=== PATIENT | male | born 1960 | race African-American/Black ===

== ENCOUNTER 2018-12-26 08:54 | Emergency (ER) | payer OTHER ==
[2018-12-26 09:05] VITALS: BP 137/77; PULSE 66; TEMP 98.1; BMI 27.0
[2018-12-26] MEDS ORDERED: KETOROLAC TROMETHAMINE 60 MG/2 ML VIAL IM ONE (09:53)
[2018-12-26] MEDS ORDERED: LIDOCAINE 5% TOPICAL PATCH TP ONE (09:53)
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
[2018-12-26] MEDS ORDERED: LIDOCAINE 5% TOPICAL PATCH ONE (09:55)
[2018-12-26] MEDS ORDERED: KETOROLAC TROMETHAMINE 60 MG/2 ML VIAL ONE (09:55)
[2018-12-26] MEDS ORDERED: LIDOCAINE PATCH REMOVAL MC SCH (22:00)
== END 2018-12-26 11:46 | disposition home or self-care (01) ==
LOC: JERFT 08:54
PROC: 3E0233Z Introduction of Anti-inflammatory into Muscle, Percutaneous Approach (ICD-10-PCS; principal; 2018-12-26)
DX: M54.6 Pain in thoracic spine (principal); M62.830 Muscle spasm of back; V59.49XA Driver of pick-up truck or van injured in collision with other motor vehicles in traffic accident, initial encounter; Y92.414 Local residential or business street as the place of occurrence of the external cause; Y93.89 Activity, other specified; Y99.0 Civilian activity done for income or pay
CPT/HCPCS: 72070-TC-FY; 72100-TC-FY; 99281-25

== ENCOUNTER 2020-04-17 13:38 | Inpatient (IN) | payer OTHER ==
[2020-04-17 13:50] VITALS: BMI 27.7
--- NOTE | 2020-04-17 13:50 | PDOC ---
Rapid Medical Evaluation Time Seen by Provider: 04/17/20 13:45 Medical Evaluation: Allergies Allergy/AdvReac Type Severity Reaction Status Date / Time No Known Allergies Allergy Verified 02/27/20 09:41 04/17/20 13:46 60 year old male with pmhx HTN, CAD Complaing of chest pain and SOB since this AM. Worse with exertion, no SOB at baseline Denies fever chills, N/V/D PE: Chest RRR CTA Plan: EKG Labs CXR Pt to precede to ED for further treatment and care
[2020-04-17 14:50] LABS: BASO % 1.1 % (0-2.0); EOS % 1.8 % (0-4.5); HEMOGLOBIN 13.7 GM/dL (11.7-16.9); LYMPH % 37.1 % (8-40); MCH 28.6 pg (25.7-33.7); MCHC 32.7 g/dl (32.0-35.9); MEAN CELL VOLUME 87.4 fl (80-96); MEAN PLT VOLUME 9.8 fl (7.5-11.1); MONO % 11.3 % (3.8-10.2); NEUT % 48.7 % (42.8-82.8); PLATELET COUNT 186 K/MM3 (134-434); RDW 12.9 % (11.9-15.9)
--- NOTE | 2020-04-17 14:51 | EKG ---
Test Reason : Blood Pressure : / mmHG Vent. Rate : 072 BPM Atrial Rate : 072 BPM P-R Int : 172 ms QRS Dur : 110 ms QT Int : 400 ms P-R-T Axes : 067 066 041 degrees QTc Int : 438 ms SINUS RHYTHM WITH OCCASIONAL PREMATURE VENTRICULAR COMPLEXES POSSIBLE LEFT ATRIAL ENLARGEMENT NONSPECIFIC T WAVE ABNORMALITY ABNORMAL ECG NO PREVIOUS ECGS AVAILABLE Confirmed by CHARLIE FLANAGAN MD ([id number]) on 04/17/2020 2:51:19 PM Referred By: Confirmed By:CHARLIE FLANAGAN MD
[2020-04-17 14:57] LABS: INR 1.07 (0.83-1.09); PROTHROMBIN TIME (PATIENT) 12.6 SEC (9.7-13.0)
[2020-04-17 15:22] LABS: ALBUMIN 4.1 g/dl (3.4-5.0); BLOOD UREA NITROGEN 15.5 mg/dL (7-18); CALCIUM 9.9 mg/dL (8.5-10.1); N-TERMINAL BNP 280.3 pg/ml (5-125); TOT PROT 7.6 g/dl (6.4-8.2)
--- NOTE | 2020-04-17 15:36 | PDOC ---
History of Present Illness - General Chief Complaint: Shortness of Breath Stated Complaint: SOB Time Seen by Provider: 04/17/20 13:45 - History of Present Illness Initial Comments: 60 yo male with PMH of HTN, CAD, GERD presents with 1 day hx of chest pressure and SOB. His chest pressure is midsternal, nonradiating, and nonexertional. His sob is worsened by laying down and alleviated by standing. He reports feeling the symptoms after eating a turkey burger. He endorses abdominal distention, bloating, flatulence, constipation. He denies fevers, chills, diaphoresis, nausea, vomiting, diarrhea. Past History - Medical History Allergies/Adverse Reactions: Allergies Allergy/AdvReac Type Severity Reaction Status Date / Time No Known Allergies Allergy Verified 02/27/20 09:41 Home Medications: Ambulatory Orders Carvedilol [Coreg] 25 mg PO BID 12/26/18 Losartan Potassium [Cozaar -] 50 mg PO DAILY 12/26/18 Spironolactone [Aldactone] 25 mg PO DAILY 12/26/18 Cyclobenzaprine HCl [Flexeril -] 10 mg PO HS #10 tablet 02/27/20 Ibuprofen 600 mg PO Q6H #30 tablet 02/27/20 Cardiac Disorders: (? enlarged heart) COPD: No HTN: Yes - Psycho-Social/Smoking History Smoking History: Never smoked - Substance Abuse Hx (Audit-C & DAST Scrn) In the last yr the pt used illegal drug/Rx for NonMed reason: No Score: Yes response is considered Positive: 0 Screen Result (Positive result requires Nsg. DAST-10): Negative Review of Systems - Review of Systems Constitutional: No: Chills, Diaphoresis, Fever HEENTM: No: Recent change in vision, Double Vision Respiratory: Yes: Shortness of Breath, SOB with Exertion. No: Cough, Orthopnea, Wheezing, Productive cough Cardiac (ROS): Yes: Chest Tightness. No: Chest Pain, Edema, Irregular Heart Rate, Lightheadedness ABD/GI: Yes: Abdominal Distended, Constipated, Poor Appetite. No: Diarrhea, Nausea, Rectal Bleeding, Vomiting, Abdominal cramping : No: Burning, Dysuria, Discharge Musculoskeletal: Yes: Muscle Weakness. No: Joint Pain Integumentary: No: Bruising, Change in Color, Erythema, Flushing, Lesions Neurological: No: Headache, Numbness, Dizziness Psychiatric: No: Anxiety, Depression, Mood Swings Endocrine: No: Flushing, Intolerance to Cold, Intolerance to Heat *Physical Exam - Vital Signs Last Vital Signs Temp Pulse Resp BP Pulse Ox 98.5 F 77 17 120/81 98 04/17/20 13:47 04/17/20 13:47 04/17/20 13:47 04/17/20 13:47 04/17/20 14:43 - Physical Exam General Appearance: Yes: Appropriately Dressed. No: Apparent Distress HEENT: positive: EOMI, Normal Voice Respiratory/Chest: positive: Lungs Clear, Normal Breath Sounds. negative: Chest Tender, Respiratory Distress Cardiovascular: positive: Regular Rhythm, Regular Rate, S1, S2. negative: JVD, Murmur Gastrointestinal/Abdominal: positive: Normal Bowel Sounds, Soft, Distended. negative: Tender, Decreased BS, Guarding, Rebound, Tenderness Musculoskeletal: positive: Normal Inspection. negative: CVA Tenderness Extremity: positive: Normal Inspection, Normal Range of Motion Integumentary: positive: Normal Color, Dry, Warm Neurologic: positive: Fully Oriented, Alert, Normal Mood/Affect ED Treatment Course - LABORATORY CBC & Chemistry Diagram: 04/17/20 14:40 04/17/20 14:40 - ADDITIONAL ORDERS Additional order review: Laboratory Results 04/17/20 04/17/20 14:40 14:40 PT with INR 12.60 INR 1.07 PTT (Actin FS) 34.0 Sodium 142 Potassium 5.0 Chloride 107 Carbon Dioxide 29 Anion Gap 6 L BUN 15.5 Creatinine 1.0 Est GFR (CKD-EPI)AfAm 95.06 Est GFR (CKD-EPI)NonAf 82.02 Random Glucose 87 Calcium 9.9 Total Bilirubin 1.0 AST 30 ALT 37 Alkaline Phosphatase 80 Creatine Kinase 191 Troponin I 0.03 B-Natriuretic Peptide 280.3 H Total Protein 7.6 Albumin 4.1 04/17/20 14:40 RBC 4.80 MCV 87.4 MCHC 32.7 RDW 12.9 MPV 9.8 Neutrophils % 48.7 Lymphocytes % 37.1 Monocytes % 11.3 H Eosinophils % 1.8 Basophils % 1.1 - RADIOLOGY Radiology Studies Ordered: Category Date Time Status ABDOMEN FLAT & UPRIGHT [RAD] Stat Radiology 04/17/20 15:16 Ordered Medical Decision Making - Medical Decision Making 60 yo male with PMH of htn and CAD presents with 1 day hx of chest pressure and sob that is exertional and worsened when laying. The symptoms started after he ate a large meal and he endorses constipation, bloating, flatulence, stomach pressure, and salivation. Troponin was negative. CXR showed an enlarged heart with a BNP of 280. Abdominal X-ray showed distended bowel with stool. Pt is bein g admitted to observation while we wait for 2nd troponin. He is being given maalox and famotidine. Heart score = 4. Discharge - Discharge Information Problems reviewed: Yes Clinical Impression/Diagnosis: Shortness of breath Condition: Stable - Admission Yes - Follow up/Referral - Patient Discharge Instructions - Post Discharge Activity
--- NOTE | 2020-04-17 16:13 | PDOC ---
Documentation entered by Sukhi Hidalgo SCRIBE, acting as scribe for Alex Lemus MD. Alex Lemus MD: This documentation has been prepared by the Rocky horne Xhesika, SCRIBE, under my direction and personally reviewed by me in its entirety. I confirm that the documentation accurately reflects all work, treatment, procedures, and medical decision making performed by me. Attending Attestation - Resident Resident Name: Jade Arriaga - ED Attending Attestation I have performed the following: I have examined & evaluated the patient, The case was reviewed & discussed with the resident, I agree w/resident's findings & plan, Exceptions are as noted - HPI HPI: 04/17/20 15:01 The patient is a 60 year old male with pmhx of HTN, CAD, and cervical spine surgery who presents to the ED with chest pressure and SOB since this AM s/p eating turkey burger. Pt states his SOB is worse when laying down and alleviated when standing. Pt reports associated bloating, flatulence, constipation. The patient denies fever, chills, cough, nausea, vomiting. Denies dysuria, frequency, urgency and hematuria. Allergy: NKDA Social: Denies alcohol, cigarette or drug use. - Physicial Exam PE: 04/18/20 19:21 Vitals: Triage Vital signs reviewed General Appearance: No acute distress, well nourished well developed, Head: Atraumatic, Cardiac: Regular rate and rhythym, no murmurs, no rubs, no gallops, Lungs: Clear to auscultation bilateral, good air movement bilaterally, Abdomen: Soft, non distended, normal bowel sounds,Epigastric tenderness to palpation Extremities: Full range of motion to all extremities, no cyanosis, clubbing, or edema Skin: Warm and dry, no rashes or lesions, no rash, no petechiae Psych: Normal mood, normal affect - Medical Decision Making 04/21/20 07:44 60 years old with chest discomfort heart score 4 given slight exertional component will err on side of observation with serial troponins for further management Nonischemic EKG troponin negative Heart Score/ECG Review - History History: Moderately suspicious - Electrocardiogram EKG: Non specific repolarization disturbance - Age Age: 45-65 - Risk Factors Risk Factors Heart Score: Yes Hx Hypertension Based on the list above the patient has:: 1-2 risk factors - Troponin Troponin: </= normal limit - Score Heart Score - Total: 4 Discharge - Discharge Information Problems reviewed: Yes Clinical Impression/Diagnosis: Shortness of breath Condition: Stable Disposition: HOME - Follow up/Referral - Patient Discharge Instructions - Post Discharge Activity
[2020-04-17] MEDS ORDERED: MAG HYDROX/AL HYDROX/SIMETH 30 ML UNIT-DOSE CUP PO ONE (16:32)
[2020-04-17] MEDS ORDERED: FAMOTIDINE 20 MG TABLET PO ONE (16:32)
[2020-04-17] MEDS ORDERED: FAMOTIDINE 20 MG TABLET ONE (17:02)
[2020-04-17] MEDS ORDERED: MAG HYDROX/AL HYDROX/SIMETH 30 ML UNIT-DOSE CUP ONE (17:03)
--- NOTE | 2020-04-17 17:14 | PN ---
Teaching Attending Note Name of Resident: Joe Garcia ATTENDING PHYSICIAN STATEMENT I saw and evaluated the patient. I reviewed the resident's note and discussed the case with the resident. I agree with the resident's findings and plan as documented. SUBJECTIVE: 60 year old male with known history of hypertension, CAD, GERD who presents with complaints of chest tightness along with shortness of breath with minimal acitivity of one days' duration. The chest tightness apparently woke him up from sleep last night. It was located in the midsternum, nonradiating, nonexertional, worse with laying down and alleviated by standing. 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 Atypical chest pains - Ddx: cardiac (ACS, CHF, arrhythmia) vs. GI - serial troponins - aspirin - cardiac monitoring - H2/PPI - cont home meds: carvedilol, ARB/COLE - echo - resume home meds (he hasn't taken in weeks): coreg, losartan, spironolactone 2. HTN -cont home meds 3. Abnormal abd Xray - ? partial SBO. CT scan of the abdomen to better elucidate - clinically reassuring currently no concerning abdominal findings 4. DVT prophylaxis DW Dr Jenise Coleman and agree with her plans of care
--- NOTE | 2020-04-17 17:44 | HP ---
CHIEF COMPLAINT: sob PCP: Unknown HISTORY OF PRESENT ILLNESS: 60M w/ pmhx of HTN, CAD, GERD presents in the ED for complaints of persistent shortness of breath. States his symptoms started last night while he was in bed prior to falling asleep. It was briefly relieved when he turned to his side, but then it started again. He was able to sleep overnight but when he woke up, he continued to experience the sob. As he continued his day, he then started to have mid-sternal chest pressure that was worse with physical exertion during his daily activities. He admits to non-compliance with his medications over the past 1 month, but decided to start taking it today. 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 Bains) and had a treadmill stress test less than 1 year ago (late 2018 or early 2019 - he does not recall exactly when) and reported that the results were normal. He did admit to mild lower abd pain because he has not had a bowel movement since yesterday. Denies any headache, n/v, chest pain, diarrhea, urinary symptoms. ER course was notable for: (1) VS wnl, CBC/CMP wnl, trop neg x1, BNP 280 (2) CXR showed large heart, no acute process; abd xray showed distended small bowel loops in R abdomen, could represent focal ileus though developing small bowel or partial SBO cannot be excluded (3) Mylanta and Pepcid given Recent Travel: Denies PAST MEDICAL HISTORY: As per HPI PAST SURGICAL HISTORY: R knee surgery C-spine surgery FAMILY HISTORY: Father- stroke Social History: Smoking: quit smoking cigars 4 years ago; 2-3 cigars daily x2 years Alcohol: Denies Drugs: Denies Lives with Allergies No Known Allergies Allergy (Verified 02/27/20 09:41) HOME MEDICATIONS: Home Medications Medication Instructions Recorded Carvedilol [Coreg] 25 mg PO BID 12/26/18 Losartan Potassium [Cozaar -] 50 mg PO DAILY 12/26/18 Spironolactone [Aldactone] 25 mg PO DAILY 12/26/18 Cyclobenzaprine HCl [Flexeril -] 10 mg PO HS #10 tablet 02/27/20 Ibuprofen 600 mg PO Q6H #30 tablet 02/27/20 REVIEW OF SYSTEMS CONSTITUTIONAL: Absent: fever, chills, diaphoresis, generalized weakness, malaise, loss of appetite, weight change HEENT: Absent: rhinorrhea, nasal congestion, throat pain, throat swelling, difficulty swallowing, mouth swelling, ear pain, eye pain, visual changes CARDIOVASCULAR: Absent: chest pain, syncope, palpitations, irregular heart rate, lightheadedness, peripheral edema RESPIRATORY: shortness of breath, dyspnea with exertion, orthopnea Absent: cough, wheezing, stridor, hemoptysis GASTROINTESTINAL: abdominal pain, abdominal distension, constipation Absent: , nausea, vomiting, diarrhea, melena, hematochezia GENITOURINARY: Absent: dysuria, frequency, urgency, hesitancy, hematuria, flank pain, genital pain MUSCULOSKELETAL: Absent: myalgia, arthralgia, joint swelling, back pain, neck pain SKIN: Absent: rash, itching, pallor HEMATOLOGIC/IMMUNOLOGIC: Absent: easy bleeding, easy bruising, lymphadenopathy, frequent infections ENDOCRINE: Absent: unexplained weight gain, unexplained weight loss, heat intolerance, cold intolerance NEUROLOGIC: Absent: headache, focal weakness or paresthesias, dizziness, unsteady gait, seizure, mental status changes, bladder or bowel incontinence PSYCHIATRIC: Absent: anxiety, depression, suicidal or homicidal ideation, hallucinations. PHYSICAL EXAMINATION Vital Signs - 24 hr 04/17/20 04/17/20 13:47 14:43 Temperature 98.5 F Pulse Rate 77 Respiratory 17 Rate Blood Pressure 120/81 O2 Sat by Pulse 98 98 Oximetry (%) GENERAL: Pleasant, well-appearing -russian male. NAD. AAOx3. Resting comfortably in bed. HEENT: AT/NC. EOMI. MMM. NECK: Supple, no JVD. well-healed surgical scar on anterior neck. LUNGS: cta b/l. no wheezes/rales noted. symmetric chest rise. HEART: RRR, normal S1, S2. No murmurs noted. ABDOMEN: Soft, +TTP in b/l lower quadrants. no rebound tenderness/guarding. MUSCULOSKELETAL: moves all extremities. EXTREMITIES: mild 1+ pitting edema b/l. NEUROLOGICAL: Cranial nerves II-XII intact. Normal speech. Laboratory Results - last 24 hr 04/17/20 04/17/20 04/17/20 14:40 14:40 14:40 WBC 5.0 RBC 4.80 Hgb 13.7 Hct 42.0 MCV 87.4 MCH 28.6 MCHC 32.7 RDW 12.9 Plt Count 186 MPV 9.8 Absolute Neuts (auto) 2.4 Neutrophils % 48.7 Lymphocytes % 37.1 Monocytes % 11.3 H Eosinophils % 1.8 Basophils % 1.1 Nucleated RBC % 0 PT with INR 12.60 INR 1.07 PTT (Actin FS) 34.0 Sodium 142 Potassium 5.0 Chloride 107 Carbon Dioxide 29 Anion Gap 6 L BUN 15.5 Creatinine 1.0 Est GFR (CKD-EPI)AfAm 95.06 Est GFR (CKD-EPI)NonAf 82.02 Random Glucose 87 Calcium 9.9 Total Bilirubin 1.0 AST 30 ALT 37 Alkaline Phosphatase 80 Creatine Kinase 191 Creatine Kinase Index 1.9 CK-MB (CK-2) 3.8 H Troponin I 0.03 B-Natriuretic Peptide 280.3 H Total Protein 7.6 Albumin 4.1 ASSESSMENT/PLAN: 60M w/ pmhx of HTN, CAD, GERD presents in the ED for complaints of persistent shortness of breath. #Shortness of breath; r/o arrhythmia vs. ACS vs. angina vs. CHF exac -EKG showed NSR with PVCs, HR 72, QTc 438 ms -Cardio consulted -Pt non-compliant with meds for past 1 month; takes Coreg, Spironolactone, Losartan. He does not report hx of heart failure -Echo ordered to assess EF; no hx of previous echo in EMR -Tele monitoring -trops neg x2 -BNP ~280 -CXR showed enlarged heart, no acute process -possible stress in AM #Abd pain; r/o SBO vs. constipation -Abd xray showed distended small bowel loops in R abdomen, could represent focal ileus though developing small bowel or partial SBO cannot be excluded -CTAP pending -PO Mylanta and PO pepcid given -Cont Pepcid #Hx of CAD; Remote hx of angiogram per pt. Will add ASA 81. Confirm meds. #HTN; can cont meds once reconciled. Unable to contact pharmacy to confirm meds. #Prophylaxis DVT: Lovenox GI: Pepcid #FEN -PO hydration -recheck lytes in AM -Na-controlled diet Dispo -Admit to tele Visit type - Emergency Visit Emergency Visit: Yes ED Registration Date: 04/17/20 Care time: The patient presented to the Emergency Department on the above date and was hospitalized for further evaluation of their emergent condition. - New Patient This patient is new to me today: Yes Date on this admission: 04/17/20 - Critical Care Critical Care patient: No ATTENDING PHYSICIAN STATEMENT I saw and evaluated the patient. I reviewed the resident's note and discussed the case with the resident. I agree with the resident's findings and plan as documented. SUBJECTIVE: OBJECTIVE: ASSESSMENT AND PLAN:
[2020-04-18 00:40] LABS: URINE APPEARANCE CLEAR; URINE BILIRUBIN NEGATIVE (NEGATIVE); URINE COLOR YELLOW; URINE GLUCOSE (UA) NEGATIVE (NEGATIVE); URINE KETONE NEGATIVE (NEGATIVE); URINE LEUK ESTERASE NEGATIVE (NEGATIVE); URINE NITRITE NEGATIVE (NEGATIVE); URINE PROTEIN NEGATIVE (NEGATIVE)
--- NOTE | 2020-04-18 06:11 | CON.CARD ---
Consult Consult Specialty:: Cardiology Referred by:: Dr. Adams Reason for Consultation:: SOB - History of Present Illness Chief Complaint: SOB History of Present Illness: 60M HTN, CHF (non-ischemic) admitted with 1 day of increased NAPOLES, PND sx and constipation. Stopped taking his usual CHF meds (Aldactone/Losartan/Coreg) for 3 weeks. Had not had BM in several days and had abd distension. Initial AXR concerned for possible ileus vs SBO----> pt had BM-----> Abd CT done did not show ileus or SBO. Enzymes - x 3. Denies CP/palps/edema [facility] report[facility]---> no stent required. No cough/fever/chills or known COVID 19 exposures - History Source History Provided By: Patient Limitations to Obtaining History: No Limitations - Past Medical History THROAT CUTTER: No: Alzheimer's, CVA, Dementia, Migraine, Multiple Sclerosis, Peripheral Neuropathy, Parkinson's, Seizure, Syncope, TIA, Vertigo, Other Cardio/Vascular: Yes: CHF, HTN Pulmonary: No: Asthma, Bronchitis, Cancer, COPD, O2 Dependent, Pneumonia, Previously Intubated, Pulmonary Embolus, Pulmonary Fibrosis, Sleep Apnea, Other Gastrointestinal: No: Ascites, Cancer, Constipation, Crohn's Disease, Diverticulitis, Diverticulosis, Esophageal Varices, Gastritis, GERD, GI Bleed, Hemorrhoids, Hiatal Hernia, Inflamatory Bowel Disease, Irritable Bowel Disease, Pancreatitis, Peptic Ulcer Disease, Ulcerative Colitis, Other Hepatobiliary: No: Cirrhosis, Cholelithiasis, Cholecystitis, Choledocholithiasis, Hepatitis A, Hepatitis B, Hepatitis C, Other Renal/: No: Renal Failure, Renal Inusuff, BPH, Cancer, Hematuria, Hemodialysis, Neurogenic Bladder, Renal Calculi, UTI, Other Heme/Onc: No: Anemia, B12 Deficiency, Bleeding Disorder, Cancer, Current Chemotherapy, Current Radiation Therapy, Hemochromatosis, Hypercoaguable State, Myeloproliferative Synd, Sickle Cell Disease, Sickle Cell Trait, Thrombocytopenia, Other Infectious Disease: No: AIDS, C-Diff, Herpes Zoster, HIV, MRSA, STD's, Tuberculosis, VREF, Other Psych: No: Addictions, Anxiety, Bipolar, Depression, Panic, Psychosis, Schizophrenia, Other Musculoskeletal: No: Bursitis, Chronic low back pain, Hemiparesis, Hemiplegia, Osteoarthritis, Paraplegia, Other Rheumatology: No: Fibromyalgia, Gout, Lupus, Rheumatoid Arthritis, Sarcoidosis, Vasculitis, Other ENT: No: Allergic Rhinitis, Sinusitis, Other Endocrine: No: Froilan's Disease, Young's Disease, Diabetes Insipidus, Diabetes Mellitus, Hyperparathyroidism, Hyperthyroidism, Hypothyroidism, Osteopenia, SIADH, Other Dermatology: No: Basal Cell, Cellulitis, Eczema, Melanoma, Psoriasis, Squamous Cell, Other - Past Surgical History Additional Surgical History: r knee surgery. cervical disc - Alcohol/Substance Use Hx Alcohol Use: No - Smoking History Smoking history: Former smoker Have you smoked in the past 12 months: No If you are a former smoker, when did you quit?: 4 YEARS AGO - Social History Usual Living Arrangement: With Spouse History of Recent Travel: No Home Medications - Allergies Allergies/Adverse Reactions: Allergies Allergy/AdvReac Type Severity Reaction Status Date / Time No Known Allergies Allergy Verified 02/27/20 09:41 - Home Medications Home Medications: Ambulatory Orders Carvedilol [Coreg] 25 mg PO BID 12/26/18 Losartan Potassium [Cozaar -] 50 mg PO DAILY 12/26/18 Spironolactone [Aldactone] 25 mg PO DAILY 12/26/18 Family Medical History Family History: Unremarkable Review of Systems - Review of Systems Constitutional: reports: No Symptoms Eyes: reports: No Symptoms HENT: reports: No Symptoms Neck: reports: No Symptoms Cardiovascular: reports: Shortness of Breath Respiratory: reports: Exercise Intolerance Gastrointestinal: denies: No Symptoms, Abdominal Pain, Bloating, Constipation, Diarrhea, Dysphagia, Indigestion, Melena, Nausea, Rectal Bleeding, Vomiting, Vomiting Blood, Other Genitourinary: denies: No Symptoms, Burning, Discharge, Dysuria, Flank Pain, Frequency, Hematuria, Incontinence, Lesions, Menses, Pain, Testicular Mass, Testicular Pain, Testicular Swelling, Urgency, Vaginal Bleeding, Other Breasts: denies: No Symptoms Reported, See HPI, Breast Implants, Discharge from Nipple, Lumps, Pain, Skin Changes, Other Musculoskeletal: denies: No Symptoms, Back Pain, Crepitus, Decreased ROM, Extremity Pain, Joint Pain, Joint Swelling, Muscle Pain, Muscle Cramps, Muscle Weakness, Other Integumentary: denies: No Symptoms, Blister, Bruising, Change in Color, Eczema, Erythema, Incision, Lesions, Lump, Pallor, Pruritis, Rash, Wound, Other Neurological: denies: No Symptoms, Change in LOC, Change in Speech, Confusion, Dizziness, Headache, Incoordination, Numbness, Parasthesia, Pre-Existing Deficit, Seizure, Syncope, Tremors, Unsteady Gait, Weakness, Other Hematology/Lymphatic: denies: No Symptoms, Easily Bruised, Excessive Bleeding, Swollen Glands, Other - Risk Factors Known Risk Factors: Yes: Hypertension Vital Signs: Vital Signs Temperature 98.2 F 04/17/20 21:25 Pulse Rate 78 04/17/20 21:25 Respiratory Rate 18 04/17/20 21:25 Blood Pressure 120/80 04/17/20 21:25 O2 Sat by Pulse Oximetry (%) 98 04/17/20 21:25 Constitutional: Yes: No Distress, Calm Eyes: Yes: Conjunctiva Clear, EOM Intact HENT: Yes: Atraumatic, Normocephalic Neck: Yes: Supple, Trachea Midline Respiratory: Yes: Regular, CTA Bilaterally Gastrointestinal: Yes: Soft (nt) JVD: No PMI: Non-Displaced Heart Sounds: Yes: S1, S2 (rrr, no m/r/g) Edema: No Neurological: Yes: Alert, Oriented Psychiatric: Yes: WNL - Other Data Labs, Other Data: CBC, BMP 04/17/20 14:40 04/17/20 14:40 INR, PTT INR 1.07 (0.83-1.09) 04/17/20 14:40 Troponin, BNP 04/17/20 04/17/20 04/17/20 14:40 17:20 23:30 Troponin I 0.03 0.03 0.04 B-Natriuretic Peptide 280.3 H Troponin, BNP 04/17/20 04/17/20 04/17/20 14:40 17:20 23:30 Troponin I 0.03 0.03 0.04 B-Natriuretic Peptide 280.3 H Laboratory Tests 04/17/20 04/17/20 04/17/20 14:40 14:40 17:20 WBC Hgb Plt Count INR 1.07 Sodium Potassium BUN Est GFR (CKD-EPI)AfAm Troponin I 0.03 0.03 TSH 0.94 04/17/20 04/18/20 04/18/20 23:30 06:01 06:01 WBC 8.1 Hgb 14.3 Plt Count 193 INR Sodium 143 Potassium 4.8 BUN 17.0 Est GFR (CKD-EPI)AfAm 84.71 Troponin I 0.04 TSH Echo: Pending Imaging - Results X-ray: Image Reviewed EKG: Image Reviewed (NSR, fusion beats, Nonspecific lateral T wave changes) Assessment/Plan IMP: 1. Chronic CHF (?systolic vs diastolic), non-ischemic by hx 2. NAPOLES 3. Constipation REC: 1. Chronic CHF: -Echo for EF assessment -Resum home meds which he had stopped: Coreg/Aldactone/Losartan -Reinforced importance of compliance with meds and diet 2. NAPOLES: possibly due to several weeks med non compliance vs constipation w/ abdominal distension, r/o ischemia -Echo -Nuclear stress today -Appears euvolemic on exam and does not take Lasix at home 3. Constipation: -Now improved after having several BMs -Abd CT did not show ileus or SBO -bowel regimen, dietary modification 4. HTN: chronic, controlled -Resume home meds -Will need outpt f/u with his cassandra consultant
[2020-04-18 07:35] LABS: BASO % 0.6 % (0-2.0); HEMATOCRIT 44.6 % (35.4-49); HEMOGLOBIN 14.3 GM/dL (11.7-16.9); LYMPH % 29.4 % (8-40); MEAN CELL VOLUME 87.6 fl (80-96); MEAN PLT VOLUME 10.4 fl (7.5-11.1); MONO % 8.3 % (3.8-10.2); NEUT % 60.7 % (42.8-82.8); PLATELET COUNT 193 K/MM3 (134-434); RBC 5.09 M/mm3 (4.00-5.60); RDW 12.7 % (11.9-15.9); WHITE BLOOD COUNT 8.1 K/mm3 (4.0-10.0)
[2020-04-18 07:46] LABS: ALBUMIN 4.1 g/dl (3.4-5.0); CALCIUM 9.9 mg/dL (8.5-10.1); CREATININE 1.1 mg/dL (0.55-1.3); MAGNESIUM 2.4 mg/dL (1.8-2.4); PHOSPHOROUS 3.9 mg/dL (2.5-4.9); POTASSIUM 4.8 mmol/L (3.5-5.1); TOT PROT 7.7 g/dl (6.4-8.2)
[2020-04-18] MEDS ORDERED: REGADENOSON 0.4 MG/5 ML PRE-FILLED SYRINGE IVPUSH ONE ×2 (09:30→10:15)
--- NOTE | 2020-04-18 11:27 | ECHO ---
Version: 1 Name: REGINA WILLINGHAM Exam: Adult Echocardiogram Study Date: 04/18/2020, 10:13 AM Age: 60 Years MMode/2D Measurements & Calculations IVSd: 0.89 cm LVIDs: 5.6 cm LVIDd: 6.6 cm LVPWd: 0.97 cm LAV (MOD-bp): 114.0 ml ACS: 1.65 cm Ao root diam: 2.7 cm LVOT diam: 2.02 cm LA dimension: 4.2 cm Doppler Measurements & Calculations MV E max nick: 158.9 cm/sec Med E/e': 40.7 MV A max nick: 73.3 cm/sec Med Peak E' Nick: 3.9 cm/sec MV E/A: 2.17 Lat E/e': 27.6 Lat Peak E' Nick: 5.8 cm/sec MR max P.1 mmHg Ao max P.7 mmHg ASHLEY(I,D): 2.27 cm Ao mean P.9 mmHg LV V1 mean: 55.4 cm/sec Ao V2 max: 119.1 cm/sec LV V1 mean P.53 mmHg TR max nick: 316.3 cm/sec TR max P.3 mmHg Left Ventricle The left ventricle is borderline dilated. Ejection Fraction = 30-35%. The transmitral spectral Doppl er flow pattern is suggestive of pseudonormalization. There is moderate to severe global hypokinesis of the left ventricle. Right Ventricle The right ventricle is normal in size and function. Atria The left atrium is mildly dilated. Right atrial size is normal. Mitral Valve There is mild mitral valve thickening. There is no mitral valve stenosis. There is moderate to sever e mitral regurgitation. Tricuspid Valve The tricuspid valve is normal in structure and function. There is mild tricuspid regurgitation. Righ t ventricular systolic pressure is elevated at 30-40mmHg. There is mild pulmonary hypertension. Aortic Valve The aortic valve is trileaflet. No hemodynamically significant valvular aortic stenosis. No aortic regurgitation is present. Pulmonic Valve The pulmonic valve is not well seen, but is grossly normal. There is no pulmonic valvular stenosis. There is no pulmonic valvular regurgitation. Great Vessels The aortic root is normal size. Pericardium/Pleura There is no pericardial effusion. Summary Statements The left ventricle is borderline dilated. Ejection Fraction = 30-35%. The left atrium is mildly dilated. There is moderate to severe mitral regurgitation. There is mild tricuspid regurgitation. Right ventricular systolic pressure is elevated at 30-40mmHg. There is mild pulmonary hypertension. The aortic root is normal size. There is no pericardial effusion. MD Clinton *Mikki 04/18/2020, 11:27 AM Ordering Physician: Jenise Coleman Referring Physician: JENISE COLEMAN Performed By: Matilda Go
--- NOTE | 2020-04-18 13:03 | PN ---
Teaching Attending Note Name of Resident: Luis Pelayo ATTENDING PHYSICIAN STATEMENT I saw and evaluated the patient. I reviewed the resident's note and discussed the case with the resident. I agree with the resident's findings and plan as documented. SUBJECTIVE: Seen and examined at bedside. Patient reports abdominal distention and dis comfort has resolved but still having dyspnea described as "inability to catch my breath". Echocardiogram shows dilated LV with 30 to 35% ejection fraction with moderate to severe mitral regurg and mild pulmonary hypertension. Patient is scheduled for nuclear stress test this afternoon. OBJECTIVE: Last Vital Signs Temp Pulse Resp BP Pulse Ox 98.4 F 69 20 130/91 98 04/18/20 06:00 04/18/20 06:00 04/18/20 06:00 04/18/20 06:00 04/18/20 06:00 PE: per resident note labs/imaging: reviewed ASSESSMENT AND PLAN: 60-year-old male with a past medical history of hypertension, CAD, GERD presents to the ED with complaints of shortness of breath and abdominal distention. Admitted for chest pain/rule out ACS #Dyspnea, chest discomfort Found to have EF of 30 to 35% with moderate to severe mitral regurg and mild pulmonary hypertension Cardiology on board: Appreciate recommendations Stress test planned for today Continue aspirin, spironolactone, Lasix, carvedilol, losartan #Hypertension Continue carvedilol, spironolactone, losartan #DVT prophylaxis: Lovenox
[2020-04-18] MEDS: FUROSEMIDE 40 MG TABLET (FP) PO SCH (14:52)
[2020-04-18] MEDS: ASPIRIN 81 MG CHEWABLE TABLETS PO SCH (14:52)
[2020-04-18] MEDS: LOSARTAN POTASSIUM 25 MG TABLET PO SCH (14:52)
[2020-04-18] MEDS: FAMOTIDINE 20 MG TABLET PO SCH (14:53)
[2020-04-18] MEDS: ENOXAPARIN NA (PORCINE) 40 MG/0.4 ML DISP.SYRIN SQ SCH (14:53)
[2020-04-18] MEDS: SPIRONOLACTONE 25 MG TABLET PO SCH (14:54)
[2020-04-18] MEDS: CARVEDILOL 12.5 MG TABLET (FP) PO SCH ×2 (14:54→21:15)
--- NOTE | 2020-04-18 15:06 | PN ---
Progress Note (short form) - Note Progress Note: Spoke to his data control assistant, Dr. Hong Mcnair. Patient had markedly abnl nuclear stress several years ago prompting cath 2017: NORMAL CORS. Patient's EF 2018 35%, then improved on meds to 44% in 2019. Now 30-35% off meds for about 3 weeks. 1. Patient has normal cors with non-ischemic cardiomyopathy, EF fluctuating b/t 30- 44% based on med compliance. 2. Needs to resume home meds, ideally substitute Entresto / BID for Losartan but currently he is listed as having no insurance so will not be able to obtain Entresto. 3. Spoke to social work about assisting patient in obtaining health insurance coverage 4. Needs to follow up with Dr. Mcnair and PMD with repeat echo in several months, will likely recover function if compliant with med Rx
--- NOTE | 2020-04-18 20:51 | PN ---
Physical Exam: SUBJECTIVE: Patient seen and examined. The patient does not appear to be in acute distress at the time of interview. Patient reports feeling periodic episodes of shortness of breath as if he is unable to breathe fully. Mr. Downing endorses these episodes during meals and reside at random times. The patient also endorses a congeital cardiac defect within "the elias" of his heart and are appreciated on physical exam. OBJECTIVE: Vital Signs Period Temp Pulse Resp BP Sys/Elizabeth Pulse Ox Last 24 Hr 98.2 F-98.5 F 63-83 10-20 120-140/80-91 97-100 GENERAL: The patient is awake, alert, and fully oriented, in no acute distress. HEAD: Normal with no signs of trauma. LUNGS: Breath sounds equal, clear to auscultation bilaterally, no wheezes, no crackles, no accessory muscle use. HEART: A loud, harsh, holosystolic murmur at the lower left sternal border regular rate and rhythm ABDOMEN: Soft, nontender, nondistended, normoactive bowel sounds, no guarding, no rebound, no hepatosplenomegaly, no masses. EXTREMITIES: 2+ pulses, warm, well-perfused, no edema. PSYCH: Normal mood, normal affect. SKIN: Warm, dry, normal turgor, no rashes or lesions noted Laboratory Results - last 24 hr 04/17/20 04/17/20 04/18/20 18:45 23:30 00:01 WBC RBC Hgb Hct MCV MCH MCHC RDW Plt Count MPV Absolute Neuts (auto) Neutrophils % Lymphocytes % Monocytes % Eosinophils % Basophils % Nucleated RBC % Sodium Potassium Chloride Carbon Dioxide Anion Gap BUN Creatinine Est GFR (CKD-EPI)AfAm Est GFR (CKD-EPI)NonAf Random Glucose Calcium Phosphorus Magnesium Total Bilirubin AST ALT Alkaline Phosphatase Troponin I 0.04 Total Protein Albumin Urine Color Yellow Urine Appearance Clear Urine pH 5.0 Ur Specific Mather 1.015 Urine Protein Negative Urine Glucose (UA) Negative Urine Ketones Negative Urine Blood Negative Urine Nitrite Negative Urine Bilirubin Negative Urine Urobilinogen 1.0 Ur Leukocyte Esterase Negative COVID-19 ([facility]) Not detected 04/18/20 04/18/20 06:01 06:01 WBC 8.1 RBC 5.09 Hgb 14.3 Hct 44.6 MCV 87.6 MCH 28.0 MCHC 32.0 RDW 12.7 Plt Count 193 MPV 10.4 Absolute Neuts (auto) 4.9 Neutrophils % 60.7 D Lymphocytes % 29.4 D Monocytes % 8.3 Eosinophils % 1.0 Basophils % 0.6 Nucleated RBC % 0 Sodium 143 Potassium 4.8 Chloride 108 H Carbon Dioxide 27 Anion Gap 8 BUN 17.0 Creatinine 1.1 Est GFR (CKD-EPI)AfAm 84.71 Est GFR (CKD-EPI)NonAf 73.09 Random Glucose 99 Calcium 9.9 Phosphorus 3.9 Magnesium 2.4 Total Bilirubin 1.0 AST 19 ALT 38 Alkaline Phosphatase 83 Troponin I 0.03 Total Protein 7.7 Albumin 4.1 Urine Color Urine Appearance Urine pH Ur Specific Mather Urine Protein Urine Glucose (UA) Urine Ketones Urine Blood Urine Nitrite Urine Bilirubin Urine Urobilinogen Ur Leukocyte Esterase COVID-19 ([facility]) Active Medications Generic Name Dose Route Start Last Admin Trade Name Freq PRN Reason Stop Dose Admin Aspirin 81 mg 04/18/20 10:00 04/18/20 14:52 Asa - PO 81 mg DAILY LENNY Administration Carvedilol 12.5 mg 04/18/20 11:30 04/18/20 14:54 Coreg - PO 12.5 mg BID LENNY Administration Enoxaparin Sodium 40 mg 04/18/20 10:00 04/18/20 14:53 Lovenox - SQ 40 mg DAILY LENNY Administration Famotidine 20 mg 04/18/20 10:00 04/18/20 14:53 Pepcid - PO 20 mg DAILY LENNY Administration Furosemide 40 mg 04/18/20 11:30 04/18/20 14:52 Lasix - PO 40 mg DAILY LENNY Administration Losartan Potassium 25 mg 04/18/20 10:00 04/18/20 14:52 Cozaar - PO 25 mg DAILY LENNY Administration Spironolactone 25 mg 04/18/20 11:30 04/18/20 14:54 Aldactone - PO 25 mg DAILY LENNY Administration ASSESSMENT/PLAN: Mr. Downing is a 60 AA male w a h/o HTN, GERD, and CAD. The patient presented to the hospital with a co SOB with accompanying chest pressure and bloating. Patient has been admitted to telemetry under the suspicion of acute coronary syndrome. #Possible ACS vs dyspnea vs abdominal distension secondary to SBO CXR shows enlarged heart with calcifications in the right heart field and clear lungs - pharmacological lexiscan using Regadenoson used for nuclear stress test shows resting EF of 15% with a post stress EF of 23% - EF in 2018 showed 35%. 2019 showed improvements to 44% on medications - Patient admits to non-compliance - Consultation placed for Dr. Kaye - spoken to social work in regards to affording entresto without insurance. Will need to follow up with Dr. Mcnair outpatient for follow up Stress Echo - Likely to improve EF with strict medication compliance per cardiology Continue aspirin, spironolactone, Lasix, carvedilol, losartan #Hypertension Continue carvedilol, spironolactone, losartan #DVT ppx: Lovenox Visit type - Emergency Visit Emergency Visit: Yes ED Registration Date: 04/17/20 Care time: The patient presented to the Emergency Department on the above date and was hospitalized for further evaluation of their emergent condition. - New Patient This patient is new to me today: No - Critical Care Critical Care patient: No - Discharge Referral Referred to [facility] Med P.C.: No ATTENDING PHYSICIAN STATEMENT I saw and evaluated the patient. I reviewed the resident's note and discussed the case with the resident. I agree with the resident's findings and plan as documented. SUBJECTIVE: OBJECTIVE: ASSESSMENT AND PLAN:
[2020-04-19 06:45] LABS: HEMATOCRIT 41.9 % (35.4-49); HEMOGLOBIN 13.8 GM/dL (11.7-16.9); MCH 28.4 pg (25.7-33.7); MCHC 32.8 g/dl (32.0-35.9); MEAN CELL VOLUME 86.6 fl (80-96); MEAN PLT VOLUME 9.8 fl (7.5-11.1); PLATELET COUNT 178 K/MM3 (134-434); RBC 4.84 M/mm3 (4.00-5.60); RDW 12.6 % (11.9-15.9); WHITE BLOOD COUNT 5.5 K/mm3 (4.0-10.0)
[2020-04-19 07:02] LABS: BLOOD UREA NITROGEN 15.7 mg/dL (7-18); CALCIUM 9.7 mg/dL (8.5-10.1); CREATININE 1.1 mg/dL (0.55-1.3); PHOSPHOROUS 4.1 mg/dL (2.5-4.9); POTASSIUM 4.5 mmol/L (3.5-5.1)
[2020-04-19] MEDS: ENOXAPARIN NA (PORCINE) 40 MG/0.4 ML DISP.SYRIN SQ SCH (10:07)
[2020-04-19] MEDS: LOSARTAN POTASSIUM 25 MG TABLET PO SCH (10:08)
[2020-04-19] MEDS: FUROSEMIDE 40 MG TABLET (FP) PO SCH (10:08)
[2020-04-19] MEDS: FAMOTIDINE 20 MG TABLET PO SCH (10:08)
[2020-04-19] MEDS: CARVEDILOL 12.5 MG TABLET (FP) PO SCH (10:08)
[2020-04-19] MEDS: ASPIRIN 81 MG CHEWABLE TABLETS PO SCH (10:08)
[2020-04-19] MEDS: SPIRONOLACTONE 25 MG TABLET PO SCH (10:08)
--- NOTE | 2020-04-19 10:12 | DS ---
Physical Examination Vital Signs: Vital Signs Temperature 98.1 F 04/19/20 06:00 Pulse Rate 55 L 04/19/20 06:00 Respiratory Rate 16 04/19/20 06:00 Blood Pressure 106/60 04/19/20 06:00 O2 Sat by Pulse Oximetry (%) 99 04/19/20 06:00 Labs: CBC, BMP 04/19/20 05:45 04/19/20 05:45 Discharge Summary Problems reviewed: Yes Reason For Visit: SOB CHEST PAIN Current Active Problems Shortness of breath (Acute) Procedures: Principal: Nuclear stress test, echocardiogram Hospital Course: 60-year-old male with a past medical history of hypertension, CAD, GERD presents to the ED with complaints of shortness of breath and abdominal distention. Admitted for chest pain/rule out ACS. Patient's troponins were negative. Patient underwent an echocardiogram that showed an ejection fraction of 30 to 35%. A nuclear stress test showed perfusion deficits but no ischemia. Of note, patient had not been taking his medications for several weeks which is likely the cause of his increased symptoms. Patient currently does not have insurance. At time of discharge patient is hemodynamically stable and satting well on room air. He states he feels much better and is comfortable to go home. Patient states he has 3 months worth of pills at home currently. Will prescribe an additional dose of daily Lasix. Patient would benefit from Entresto and possibly an ICD when his insurance issues are resolved. Needs to follow up with Dr. Mcnair and PMD with repeat echo in several months, will likely recover function if compliant with med Rx Condition: Stable - Instructions Diet, Activity, Other Instructions: Low sodium diet (less than 2 grams daily) Weigh yourself daily and record weight: bring to next doctors appointment - Home Medications Comprehensive Discharge Medication List: Ambulatory Orders RX: Carvedilol [Coreg] 25 mg PO BID 12/26/18 RX: Spironolactone [Aldactone] 25 mg PO DAILY 12/26/18 RX: Losartan Potassium [Cozaar -] 50 mg PO BID 04/18/20 RX: Aspirin [ASA -] 81 mg PO DAILY tab.chew 04/19/20 RX: Furosemide [Lasix -] 40 mg PO DAILY #30 tablet 04/19/20 RX: Losartan Potassium [Cozaar -] 25 mg PO DAILY tablet 04/19/20 RX: Spironolactone [Aldactone -] 25 mg PO DAILY tablet 04/19/20 This patient is new to me today: No Emergency Visit: Yes ED Registration Date: 04/17/20 Care time: The patient presented to the Emergency Department on the above date and was hospitalized for further evaluation of their emergent condition. Critical Care patient: No - Discharge Referral Referred to [facility] Med P.C.: No
[2020-04-19 10:15] VITALS: BP 116/67; PULSE 64; TEMP 98.3
--- NOTE | 2020-04-19 12:15 | PN ---
Progress Note (short form) - Note Progress Note: cc: sob s: no chest pain, palps, dizziness, dyspnea Current Medications Generic Name Dose Route Start Last Admin Trade Name Ridge PRN Reason Stop Dose Admin Aspirin 81 mg 04/18/20 10:00 04/19/20 10:08 Asa - PO 81 mg DAILY LENNY Administration Carvedilol 12.5 mg 04/18/20 11:30 04/19/20 10:08 Coreg - PO 12.5 mg BID LENNY Administration Enoxaparin Sodium 40 mg 04/18/20 10:00 04/19/20 10:07 Lovenox - SQ 40 mg DAILY LENNY Administration Famotidine 20 mg 04/18/20 10:00 04/19/20 10:08 Pepcid - PO 20 mg DAILY LENNY Administration Furosemide 40 mg 04/18/20 11:30 04/19/20 10:08 Lasix - PO 40 mg DAILY LENNY Administration Losartan Potassium 25 mg 04/18/20 10:00 04/19/20 10:08 Cozaar - PO 25 mg DAILY LENNY Administration Spironolactone 25 mg 04/18/20 11:30 04/19/20 10:08 Aldactone - PO 25 mg DAILY LENNY Administration Vital Signs Period Temp Pulse Resp BP Sys/Elizabeth Pulse Ox Last 24 Hr 97.6 F-98.3 F 55-80 10-16 103-121/60-87 97-100 Constitutional: Yes: No Distress, Calm Eyes: Yes: Conjunctiva Clear, EOM Intact HENT: Yes: Atraumatic, Normocephalic Neck: Yes: Supple, Trachea Midline Respiratory: Yes: Regular, CTA Bilaterally Gastrointestinal: Yes: Soft (nt) JVD: No PMI: Non-Displaced Heart Sounds: Yes: S1, S2 (rrr, no m/r/g) Edema: No Neurological: Yes: Alert, Oriented Psychiatric: Yes: not agitated no jaundice, diaphoresis - Results X-ray: Image Reviewed EKG: Image Reviewed (NSR, fusion beats, Nonspecific lateral T wave changes) tele: sinus, PVc mibi 03/2020 large size, severe intensity fixed inf, apical anterior and lateral perfusion defects no ischemia. no tid. EF 15% rest, 23% post stress, dilated LV Assessment/Plan IMP: 1. Chronic CHF (?systolic vs diastolic), non-ischemic by hx 2. NAPOLES 3. Constipation REC: 1. Chronic systolic HF -Resume home meds which he had stopped: Coreg/Aldactone/Losartan -Reinforced importance of compliance with meds and diet 2. NAPOLES: possibly due to several weeks med non compliance vs constipation w/ abdominal distension, r/o ischemia -noncompliance with meds due to loss of insurance coverage - meds resumed, dyspnea resolved - no ischemia on mibi here - cont current meds, lasix started for MR 3. Constipation: -Now improved after having several BMs -Abd CT did not show ileus or SBO -bowel regimen, dietary modification 4. HTN: chronic, controlled -Resume home meds -Will need outpt f/u with his stereoptician
== END 2020-04-19 12:10 | disposition home or self-care (01) | DRG 194 ==
LOC: JER 13:38 → JERBED 19:11 → OBSVTOIN 19:11 → J4S 04-18 00:06
PROVIDERS: ADMIT Internal Medicine; ATTEND Internal Medicine
DX: I11.0 Hypertensive heart disease with heart failure (principal); I50.22 Chronic systolic (congestive) heart failure; R07.89 Other chest pain; I25.10 Atherosclerotic heart disease of native coronary artery without angina pectoris; I10 Essential (primary) hypertension; K21.9 Gastro-esophageal reflux disease without esophagitis; K59.09 Other constipation; I42.8 Other cardiomyopathies; R14.0 Abdominal distension (gaseous); R06.02 Shortness of breath; R01.1 Cardiac murmur, unspecified; Z91.14 Patient's other noncompliance with medication regimen
CPT/HCPCS: 36415; 71046-TC-FY; 74019-TC-FY; 74176-TC; 78452-TC; 80048; 80053; 80061; 81003; 82550; 82553; 83721; 83735; 83880; 84100; 84443; 84484; 85025; 85027; 85610; 85730; 93005; 93010; 93017; 93306-TC; 99285-25; A9502; J2785; U0003

== ENCOUNTER 2021-11-21 13:37 | Emergency (ER) | payer OTHER ==
[2021-11-21 13:47] VITALS: BP 100/67; PULSE 61; TEMP 97.4; BMI 28.8
[2021-11-21] MEDS ORDERED: KETOROLAC TROMETHAMINE 30 MG/1 ML VIAL IM ONE (14:19)
[2021-11-21] MEDS ORDERED: diazePAM 5 MG TABLET PO ONE (14:19)
[2021-11-21] MEDS ORDERED: LIDOCAINE 5% TOPICAL PATCH TP ONE (14:20)
[2021-11-21] MEDS ORDERED: KETOROLAC TROMETHAMINE 30 MG/1 ML VIAL ONE ×2 (14:24→16:40)
[2021-11-21] MEDS ORDERED: diazePAM 5 MG TABLET ONE (14:24)
[2021-11-21] MEDS ORDERED: LIDOCAINE 5% TOPICAL PATCH ONE (15:18)
[2021-11-21] MEDS ORDERED: KETOROLAC TROMETHAMINE 30 MG/1 ML VIAL IVPB ONE (16:21)
[2021-11-21] MEDS ORDERED: morphine CARPU-JECT 4 MG/1 ML DISP.SYRIN IVPUSH ONE (16:22)
[2021-11-21] MEDS ORDERED: SODIUM CHLORIDE 0.9% 500 ML INFUS.BAG IV ONE (16:22)
[2021-11-21] MEDS ORDERED: predniSONE 20 MG TABLET (UD) PO ONE (16:22)
[2021-11-21] MEDS ORDERED: predniSONE 20 MG TABLET (UD) ONE (16:40)
[2021-11-21] MEDS ORDERED: morphine SULFATE 4 MG/ML VIAL ONE (16:40)
[2021-11-21 17:15] LABS: BASO % 0.8 % (0-2.0); EOS % 2.3 % (0-4.5); HEMATOCRIT 39.1 % (35.4-49); LYMPH % 35.8 % (8-40); MCH 28.8 pg (25.7-33.7); MCHC 33.2 g/dl (32.0-35.9); MEAN CELL VOLUME 86.7 fl (80-96); MEAN PLT VOLUME 8.4 fl (7.5-11.1); MONO % 8.8 % (3.8-10.2); NEUT % 52.3 % (42.8-82.8); PLATELET COUNT 256 10^3/uL (134-434); RBC 4.52 M/mm3 (4.00-5.60); RDW 12.6 % (11.9-15.9); WHITE BLOOD COUNT 6.7 K/mm3 (4.0-10.0)
[2021-11-21 17:45] LABS: CHLORIDE 105 mmol/L (98-107); SODIUM 138 mmol/L (136-145)
[2021-11-21 17:47] LABS: ALBUMIN 4.5 g/dl (3.4-5.0); BLOOD UREA NITROGEN 25.2 mg/dL (7-18); CALCIUM 9.8 mg/dL (8.5-10.1); CO2 27 mmol/L (21-32); GLUCOSE,RANDOM 92 mg/dL (74-106)
[2021-11-21 17:50] LABS: CREATININE 1.4 mg/dL (0.55-1.3); SGOT/AST 55 U/L (15-37); SGPT/ALT 77 U/L (13-61)
[2021-11-21 17:52] LABS: BILIRUBIN,TOTAL 0.7 mg/dL (0.2-1); TOT PROT 8.2 g/dl (6.4-8.2)
[2021-11-21 17:54] LABS: ALK PHOS 102 U/L (45-117)
[2021-11-21 17:58] LABS: ANION GAP 5 MMOL/L (8-16)
[2021-11-21 20:08] LABS: CREATININE 1.4 mg/dL (0.55-1.3)
[2021-11-21] MEDS ORDERED: LIDOCAINE PATCH REMOVAL MC SCH (22:00)
== END 2021-11-21 21:15 | disposition home or self-care (01) ==
LOC: JERFT 13:37
PROC: 3E033GC Introduction of Other Therapeutic Substance into Peripheral Vein, Percutaneous Approach (ICD-10-PCS; principal; 2021-11-21)
PROC: 3E023GC Introduction of Other Therapeutic Substance into Muscle, Percutaneous Approach (ICD-10-PCS; principal; 2021-11-21)
DX: M54.41 Lumbago with sciatica, right side (principal)
CPT/HCPCS: 36415; 72100-TC-FY; 80053; 82565; 84132; 85025; 99284-25

== ENCOUNTER 2023-06-07 06:48 | Emergency (ER) | payer BC, OTHER ==
[2023-06-07 07:13] VITALS: BP 104/73; PULSE 98; RESP 18; TEMP 98.7; BMI 27.0
[2023-06-07 09:35] LABS: BASO % 0.8 % (0-2.0); EOS % 1.1 % (0-4.5); HEMATOCRIT 43.5 % (35.4-49); HEMOGLOBIN 13.9 GM/dL (11.7-16.9); LYMPH % 41.4 % (8-40); MCH 27.8 pg (25.7-33.7); MEAN PLT VOLUME 8.7 fl (7.5-11.1); MONO % 10.3 % (3.8-10.2); NEUT % 46.4 % (42.8-82.8); PLATELET COUNT 263 10^3/uL (134-434); RDW 12.5 % (11.9-15.9); WHITE BLOOD COUNT 4.4 K/mm3 (4.0-10.0)
[2023-06-07 09:36] LABS: PH,URINE 5.5 (5.0-8.0); URINE APPEARANCE TURBID; URINE BILIRUBIN NEGATIVE (NEGATIVE); URINE COLOR DK YELLOW; URINE GLUCOSE (UA) NEGATIVE (NEGATIVE); URINE KETONE TRACE (NEGATIVE); URINE LEUK ESTERASE NEGATIVE (NEGATIVE); URINE NITRITE NEGATIVE (NEGATIVE); URINE PROTEIN TRACE (NEGATIVE)
[2023-06-07 09:59] LABS: POTASSIUM 4.3 mmol/L (3.5-5.1)
[2023-06-07 10:01] LABS: ALBUMIN 4.3 g/dl (3.4-5.0); CALCIUM 9.8 mg/dL (8.5-10.1)
[2023-06-07 10:02] LABS: MAGNESIUM 1.9 mg/dL (1.8-2.4)
[2023-06-07 10:05] LABS: CREATININE 1.1 mg/dL (0.55-1.3)
[2023-06-07 10:06] LABS: BILIRUBIN,TOTAL 0.8 mg/dL (0.2-1)
[2023-06-07 10:10] LABS: N-TERMINAL BNP 141.3 pg/ml (5-125)
== END 2023-06-07 14:39 | disposition left against medical advice (07) ==
LOC: JER 06:48
DX: R06.02 Shortness of breath (principal); R07.89 Other chest pain; R51.9 Headache, unspecified; R63.0 Anorexia; H53.9 Unspecified visual disturbance; M25.519 Pain in unspecified shoulder; Z20.822 Contact with and (suspected) exposure to COVID-19
CPT/HCPCS: 0241U-QW; 36415; 70450-TC; 71046-TC-FY; 73030-TC-RT-FY; 80053; 81003; 83735; 83880; 84484; 85025; 85379; 93005; 93010; 99285-25

== ENCOUNTER 2025-05-19 17:12 | Emergency (ER) | payer BC ==
[2025-05-19 17:19] VITALS: BP 100/57; PULSE 71; RESP 18; TEMP 97.9; BMI 25.0
[2025-05-19 18:59] LABS: ABSOLUTE IMMATURE GRANULOCYTES 0.01 x10^3/uL (0.0-0.031); BASOPHILS # 0.03 x10^3/uL (0.01-0.08); EOSINOPHIL % 2.9 % (0.8-7.0); EOSINOPHILS # 0.15 x10^3/uL (0.04-0.54); MCHC 32.4 g/dl (32.3-36.5); MEAN CELL VOLUME 85.4 fl (79.0-92.2); MEAN PLT VOLUME 9.8 fl (9.4-12.4); MONOCYTE # 0.64 x10^3/uL (0.30-0.82); MONOCYTE % 12.4 % (5.3-12.2); RDW 11.6 % (12.2-16.4)
[2025-05-19 19:08] LABS: INR 1.15 (0.83-1.09); PROTHROMBIN TIME (PATIENT) 12.6 SEC (9.7-13.0)
[2025-05-19 19:11] LABS: ACTIVATED PTT 35.7 SECONDS (25.2-36.5)
[2025-05-19 19:18] LABS: TOT PROT 7.2 g/dl (6.4-8.2)
[2025-05-19 19:19] LABS: CO2 26.0 mmol/L (21-32)
[2025-05-19 19:21] LABS: ALK PHOS 89.0 U/L (40-150)
[2025-05-19 19:24] LABS: CREATININE 1.11 mg/dL (0.55-1.3); SGOT/AST 35.0 U/L (5-34); SGPT/ALT 57.0 U/L (0-55)
[2025-05-19 19:43] LABS: HCV DIAGNOSTIC IN-HOUSE W/RFLX NON-REACTIVE (NONREACTIVE)
[2025-05-19 20:26] LABS: GLUCOSE,RANDOM 112.0 mg/dL (74-106)
[2025-05-19 20:27] LABS: HIV INTERPRETATION NEGATIVE (NEGATIVE)
[2025-05-19] MEDS: SODIUM CHLORIDE 0.9% 500 ML INFUS.BAG IV ONE (21:05)
== END 2025-05-19 22:07 | disposition home or self-care (01) ==
LOC: JER 17:12
DX: R06.02 Shortness of breath (principal); K59.00 Constipation, unspecified; R10.13 Epigastric pain; R42 Dizziness and giddiness; R53.1 Weakness; R05.9 Cough, unspecified; R07.9 Chest pain, unspecified
CPT/HCPCS: 36415; 71046-TC-FY; 74177-TC; 80053; 83690; 83735; 83880; 84484; 85025; 85610; 85730; 86803; 86850; 86900; 86901; 87389; 87637-QW; 93005; 93010; 99285-25; Q9967